=== PATIENT | female | born 1975 | race Caucasian/White ===

== ENCOUNTER 2019-03-01 15:28 | Inpatient (IN) | payer MEDICAID ==
[~2019-03-01] VITALS: Ht 177.8 cm; Wt 106.4 kg
[~2019-03-01 15:28] MED LIST: DOCU-131 PO; IBUP200T49 PO
[2019-03-01] MEDS: MAGNESIUM SULF. PMX 20GM/500ML 500 ML IV SCH ×2 (15:35→23:13)
[2019-03-01] MEDS ORDERED: MAGNESIUM SULF. PMX 20GM/500ML 500 ML IV ONE ×2 (15:57→23:12)
[2019-03-01] MEDS ORDERED: MAGNESIUM SULFATE PMX 4GM/100M 100 ML ONE (15:57)
[2019-03-01] MEDS ORDERED: MAGNESIUM SULFATE PMX 4GM/100M 100 ML IVPB ONE (16:00)
[2019-03-01] MEDS ORDERED: LABETALOL 5MG/ML, 20ML IVPush PRN ×3 (16:00)
[2019-03-01] MEDS ORDERED: hydrALAzine 20 MG/ML, 1ML IVPush ONE (16:00)
[2019-03-01] MEDS: LACTATED RINGERS 1,000 ML IV PRN (16:03)
[2019-03-01 16:06] LABS: BASOPHILS # (AUTO) 0.06 x10^3/uL (0-0.1); BASOPHILS % (AUTO) 1 % (0-1); EOSINOPHILS # (AUTO) 0.19 x10^3/uL (0-0.4); EOSINOPHILS % (AUTO) 2 % (1-7); LYMPHOCYTES # (AUTO) 2.84 x10^3/uL (1-3.4); LYMPHOCYTES % (AUTO) 26 % (22-44); MD NO; MEAN CORPUSCULAR HEMOGLOBIN 31.6 pg (27.0-34.8); MEAN CORPUSCULAR HGB CONC 33.6 g/dL (32.4-35.8); MEAN PLATELET VOLUME 9.1 fL (7.4-10.4); MONOCYTES # (AUTO) 0.51 x10^3/uL (0.2-0.8); MONOCYTES % (AUTO) 5 % (2-9); NEUTROPHILS # (AUTO) 7.18 x10^3/uL (1.8-6.8); NEUTROPHILS % (AUTO) 67 % (42-75); PLATELET COUNT 227 x10^3/uL (130-400); RED BLOOD COUNT 3.88 x10^6/uL (3.82-5.3); RED CELL DISTRIBUTION WIDTH 14.4 % (9.6-15.2)
[2019-03-01 16:15] LABS: ALBUMIN 2.8 g/dL (3.4-5.0); ANION GAP 9 mmol/L (5-15); CALCIUM 8.6 mg/dL (8.5-10.1); CHLORIDE 109 mmol/L (98-107)
[2019-03-01 16:19] LABS: ALANINE AMINOTRANSFERASE 129 U/L (12-78); ALKALINE PHOSPHATASE 118 U/L (45-117); BILIRUBIN,TOTAL 0.5 mg/dL (0.2-1.0); CREATININE 0.75 mg/dL (0.55-1.02); TOTAL PROTEIN 6.4 g/dL (6.4-8.2)
[2019-03-01] MEDS ORDERED: IBUPROFEN 600 MG TABLET ONE ×2 (16:54→22:48)
[2019-03-01] MEDS: IBUPROFEN 600 MG TABLET PO PRN ×2 (16:59→22:53)
[2019-03-01 19:09] LABS: MICROSCOPIC AUTO
[2019-03-01 19:17] LABS: CREATININE,URINE RANDOM 32.5 mg/dL
[2019-03-01 19:49] VITALS: BP 149/68
[2019-03-01 23:16] VITALS: BP 135/67
[2019-03-02] MEDS ORDERED: IBUPROFEN 600 MG TABLET ONE ×3 (04:47→19:31)
[2019-03-02] MEDS ORDERED: MAGNESIUM SULF. PMX 20GM/500ML 500 ML IV ONE ×2 (04:47→16:39)
[2019-03-02] MEDS: IBUPROFEN 600 MG TABLET PO PRN ×3 (04:48→19:35)
[2019-03-02 06:08] LABS: BASOPHILS # (AUTO) 0.04 x10^3/uL (0-0.1); BASOPHILS % (AUTO) 0 % (0-1); EOSINOPHILS # (AUTO) 0.25 x10^3/uL (0-0.4); EOSINOPHILS % (AUTO) 2 % (1-7); LYMPHOCYTES # (AUTO) 2.82 x10^3/uL (1-3.4); LYMPHOCYTES % (AUTO) 27 % (22-44); MD NO; MEAN CORPUSCULAR HEMOGLOBIN 31.7 pg (27.0-34.8); MEAN CORPUSCULAR HGB CONC 33.8 g/dL (32.4-35.8); MEAN CORPUSCULAR VOLUME 93.8 fL (80-100); MONOCYTES # (AUTO) 0.53 x10^3/uL (0.2-0.8); MONOCYTES % (AUTO) 5 % (2-9); NEUTROPHILS # (AUTO) 6.82 x10^3/uL (1.8-6.8); NEUTROPHILS % (AUTO) 65 % (42-75); PLATELET COUNT 213 x10^3/uL (130-400); RED BLOOD COUNT 3.71 x10^6/uL (3.82-5.3); RED CELL DISTRIBUTION WIDTH 14.6 % (9.6-15.2)
[2019-03-02 06:15] LABS: CHLORIDE 106 mmol/L (98-107)
[2019-03-02] MEDS: LACTATED RINGERS 1,000 ML IV PRN (06:22)
[2019-03-02] MEDS: MAGNESIUM SULF. PMX 20GM/500ML 500 ML IV SCH (06:22)
[2019-03-02 06:33] LABS: ALANINE AMINOTRANSFERASE 140 U/L (12-78); ALBUMIN 2.6 g/dL (3.4-5.0); ALKALINE PHOSPHATASE 110 U/L (45-117); ANION GAP 10 mmol/L (5-15); BILIRUBIN,TOTAL 0.2 mg/dL (0.2-1.0); CALCIUM 7.4 mg/dL (8.5-10.1); CREATININE 0.67 mg/dL (0.55-1.02); TOTAL PROTEIN 6.1 g/dL (6.4-8.2)
[2019-03-02] MEDS ORDERED: MAGNESIUM SULF. PMX 20GM/500ML 500 ML IV SCH (07:00)
[2019-03-02 08:49] VITALS: BP 141/74
[2019-03-02] MEDS ORDERED: LABETALOL 5MG/ML, 20ML IVPush PRN (15:30)
[2019-03-02] MEDS ORDERED: niFEDipine ER 60 MG TABLET.ER PO ONE (18:32)
[2019-03-02] MEDS: niFEDipine ER 60 MG TABLET.ER PO SCH (18:38)
[2019-03-02 19:46] VITALS: BP 124/62
[2019-03-02 21:00] VITALS: BP 122/66
[2019-03-03 01:00] VITALS: BP 109/57
[2019-03-03 05:02] VITALS: BP 122/62
[2019-03-03 05:54] LABS: BASOPHILS # (AUTO) 0.05 x10^3/uL (0-0.1); BASOPHILS % (AUTO) 1 % (0-1); EOSINOPHILS % (AUTO) 2 % (1-7); LYMPHOCYTES # (AUTO) 2.88 x10^3/uL (1-3.4); LYMPHOCYTES % (AUTO) 27 % (22-44); MD NO; MEAN CORPUSCULAR HEMOGLOBIN 31.7 pg (27.0-34.8); MEAN CORPUSCULAR HGB CONC 33.6 g/dL (32.4-35.8); MEAN CORPUSCULAR VOLUME 94.2 fL (80-100); MEAN PLATELET VOLUME 8.6 fL (7.4-10.4); MONOCYTES # (AUTO) 0.58 x10^3/uL (0.2-0.8); MONOCYTES % (AUTO) 5 % (2-9); NEUTROPHILS # (AUTO) 7.16 x10^3/uL (1.8-6.8); NEUTROPHILS % (AUTO) 66 % (42-75); PLATELET COUNT 216 x10^3/uL (130-400); RED BLOOD COUNT 3.87 x10^6/uL (3.82-5.3); RED CELL DISTRIBUTION WIDTH 14.6 % (9.6-15.2)
[2019-03-03 06:04] LABS: ALBUMIN 2.6 g/dL (3.4-5.0); ANION GAP 10 mmol/L (5-15); CALCIUM 6.8 mg/dL (8.5-10.1); CHLORIDE 109 mmol/L (98-107)
[2019-03-03 06:08] LABS: ALANINE AMINOTRANSFERASE 103 U/L (12-78); ALKALINE PHOSPHATASE 104 U/L (45-117); BILIRUBIN,TOTAL 0.2 mg/dL (0.2-1.0); CREATININE 0.68 mg/dL (0.55-1.02); TOTAL PROTEIN 6.2 g/dL (6.4-8.2)
[2019-03-03 07:50] VITALS: BP 120/57
[2019-03-03] MEDS ORDERED: niFEDipine ER 60 MG TABLET.ER PO ONE (08:40)
[2019-03-03] MEDS: niFEDipine ER 60 MG TABLET.ER PO SCH (09:02)
[2019-03-03] MEDS ORDERED: IBUPROFEN 600 MG TABLET ONE (09:04)
[2019-03-03] MEDS: IBUPROFEN 600 MG TABLET PO PRN (09:06)
[2019-03-03] MEDS ORDERED: NIFE60TA2 PO (13:35)
[2019-03-03] MEDS ORDERED: niFEDipine ER 60 MG TABLET.ER PO SCH (19:00)
== END 2019-03-03 13:43 | disposition home or self-care (01) | DRG 776 ==
LOC: LDOP 15:28 → UNDOADMIN 15:32 → NSY 15:32 → 2NE 15:41
PROVIDERS: ADMIT Obstetrics & Gynecology Maternal & Fetal Medicine; ATTEND Obstetrics & Gynecology Maternal & Fetal Medicine
DX: O11.5 Pre-existing hypertension with pre-eclampsia, complicating the puerperium (principal); O10.93 Unspecified pre-existing hypertension complicating the puerperium
CPT/HCPCS: 36415; 80053; 81001; 82570; 83735; 84156; 84550; 85025; G0378; J3475; J7120